=== PATIENT | female | born 1975 | race Caucasian/White ===

== ENCOUNTER → 2022-06-02 14:13 | Outpatient (CLI) | payer BC, SELFPAY ==
--- NOTE | ~2022-06-02 | MM_ITS ---
EXAMINATION: MM screening yvrose BI w gabe HISTORY: Screening mammogram TECHNIQUE: Craniocaudal and mediolateral oblique 3-D tomosynthesis images were obtained and synthetic 2-D images were generated. CAD analysis was submitted and interpreted. COMPARISON: 04/08/2021, 02/20/2020 bilateral screening mammogram examinations BREAST PARENCHYMAL COMPOSITION: There are scattered areas of fibroglandular density. FINDINGS: Stable benign-appearing posterior upper outer quadrant left intramammary lymph nodes and ri ght axillary tail lymph nodes, not significantly changed since 02/20/2020. There is no evidence of nick spicious mass, calcification, or architectural distortion to suggest malignancy in either breast. The re has been no suspicious interval change. IMPRESSION: 1. No mammographic evidence of malignancy. 2. Recommend routine screening mammography in one year. BI-RADS Category 2: Benign finding(s). Reviewed, dictated and finalized at location A.
== END ==
PROVIDERS: PCP Physician Assistant; Visit Provider Physician Assistant
DX: Z12.31 Encounter for screening mammogram for malignant neoplasm of breast (principal)
CPT/HCPCS: 77063; 77067

== ENCOUNTER 2022-07-14 00:11 | Day surgery (SDC) | payer BC, SELFPAY ==
[2022-07-03 10:39] VITALS: BMI 29.3
--- NOTE | 2022-07-11 16:27 | PM.HPGS ---
History of Present Illness History of Present Illness Consent: Risks, benefits, and alternatives have been discussed and questions answered. Patient agrees to proceed with procedure. Chief complaint: neoplasm screening Narrative: Kelly Fatima is a 46 year old female referred for colon cancer screening. Review of Systems Review of Systems: All systems reviewed & are unremarkable except as noted in HPI and below PMFSH Past Medical History Medical History Anxiety Asthma exercise induced Surgical History Surgical History H/O abdominoplasty 02/2006 History of section 02/2005, 09/2003 Social History Social History Smoking status: Never smoker Alcohol intake: current Drinks per week: 4 Alcohol use details: DRINKS Substance use: never Substance use type: does not use Living arrangements: with family Spiritual care concerns: No Meds Home Medications and Allergies Home Medications Medication Instructions Recorded Confirmed Type escitalopram oxalate 20 mg tablet 25 mg PO DAILY 03/18/19 07/14/22 History (Lexapro) omega-3 fatty acids 1,000 mg 1,000 mg PO DAILY 03/18/19 07/14/22 History capsule (Fish Oil Concentrate) doxycycline hyclate 20 mg tablet 20 mg PO DAILY 07/03/22 07/14/22 History levomefolate calcium 15 mg tablet 15 mg PO DAILY 07/03/22 07/14/22 History (L-Methylfolate) levothyroxine 50 mcg tablet 50 mcg PO DAILY 07/03/22 07/14/22 History lorazepam 1 mg tablet (Ativan) 1 mg PO DAILY PRN Anxiety 07/03/22 07/14/22 History spironolactone 100 mg tablet 100 mg PO DAILY 07/03/22 07/14/22 History tirzepatide 12.5 mg/0.5 mL 12.5 mg subcut WEEKLY 07/03/22 07/14/22 History subcutaneous pen injector (Mounjaro) Allergies Allergy/AdvReac Type Severity Reaction Status Date / Time Penicillins Allergy Intermediate Rash Verified 07/14/22 06:28 Exam Const: General: alert Orientation/consciousness: patient oriented x3 Resp: Auscultation: clear to auscultation bilaterally Cardio: Rhythm: regular rhythm GI: GI Palp: Yes Soft to palpation and No Tenderness to palpation present (GI) Neuro: General: patient oriented x3 Assessment and Plan Assessment and plan (1) Colon cancer screening: Code(s): Z12.11 - Encounter for screening for malignant neoplasm of colon Status: Acute Assessment and Plan: Colonoscopy with possible biopsy or polypectomy or cautery or injection of substances.
[2022-07-14 06:31] VITALS: BP 115/75; PULSE 93; RESP 16; TEMP 36.2; O2SAT 98
--- NOTE | 2022-07-14 06:41 | WPDANESEPPF ---
Anes - Initial Pre Proc Eval Procedure: Operation Date: 07/14/22 07:30 Proposed Procedures p Screening Colonoscopy - Amos Henson MD Date/Time: 07/14/22 06:41 Surgeon: Amos Henson MD Pre Op Diagnosis: neoplasm screening Patient Data Age: 46 Gender: F Height: 1.57 m Weight: 74.2 kg Last Vital Signs Temp 36.2 C L 07/14/22 06:31 Pulse 93 07/14/22 06:31 Resp 16 07/14/22 06:31 BP 115/75 07/14/22 06:31 Pulse Ox 98 07/14/22 06:31 O2 Del Method Room Air 07/14/22 06:31 Allergies Allergy/AdvReac Type Severity Reaction Status Date / Time Penicillins Allergy Intermediate Rash Verified 07/14/22 06:28 Home Medications Medication Instructions Recorded Confirmed Type escitalopram oxalate 20 mg tablet 25 mg PO DAILY 03/18/19 07/14/22 History (Lexapro) omega-3 fatty acids 1,000 mg 1,000 mg PO DAILY 03/18/19 07/14/22 History capsule (Fish Oil Concentrate) doxycycline hyclate 20 mg tablet 20 mg PO DAILY 07/03/22 07/14/22 History levomefolate calcium 15 mg tablet 15 mg PO DAILY 07/03/22 07/14/22 History (L-Methylfolate) levothyroxine 50 mcg tablet 50 mcg PO DAILY 07/03/22 07/14/22 History lorazepam 1 mg tablet (Ativan) 1 mg PO DAILY PRN Anxiety 07/03/22 07/14/22 History spironolactone 100 mg tablet 100 mg PO DAILY 07/03/22 07/14/22 History tirzepatide 12.5 mg/0.5 mL 12.5 mg subcut WEEKLY 07/03/22 07/14/22 History subcutaneous pen injector (Mounjaro) Patient hx anesthesia problems: none Family hx anesthesia problems: none Results Review: All pre-operative results and documents have been reviewed as part of the pre-operative evaluation. [facility] Past Medical History Medical History (Updated 07/14/22 @ 06:42 by Sam Akhtar DO) Anxiety Asthma exercise induced Surgical History Surgical History (Updated 03/18/19 @ 10:51 by Myles Craig MD) H/O abdominoplasty 02/2006 History of section 02/2005, 09/2003 Social History Social History (Updated 03/18/19 @ 08:46 by Leti Vincent RN) Smoking status: Never smoker Alcohol intake: current Drinks per week: 4 Alcohol use details: DRINKS Substance use: never Substance use type: does not use Living arrangements: with family Spiritual care concerns: No Anes - Eval Final PreProcedure Day of Procedure 07/14/22 06:41 Patient weight: overweight Heart: regular rate and rhythm Lungs: clear to auscultation Airway: Mallampati scale class II Neurological: alert and oriented Last oral intake: >/= 8 hours ASA classification: II Emergent: no Anesthetic plan: proceed Anesthesia type and monitoring: general GIVS and standard monitoring Results Review: All pre-operative results and documents have been reviewed as part of the pre-operative evaluation. Informed Consent: The patient's anesthetic plan and its attendant risks and benefits were discussed with the patient/family/POA. Questions were solicited and answers provided to the satisfaction of the patient/family/POA.
[2022-07-14] MEDS: LACTATED RINGERS 1,000 ML 150 ML IV CONT (06:42)
[2022-07-14 06:43] LABS: Glucose Point of Care 102 mg/dl (65-105)
[2022-07-14] MEDS: SIMETHICONE ORAL SUSPENSION 20 MG/0.3 ML 30 ML BOTTLE 0.6 ML IRRIGATION (07:35)
[2022-07-14 07:43] VITALS: BP 98/63; PULSE 92; RESP 20; O2SAT 96
[2022-07-14 07:53] VITALS: BP 103/69; PULSE 83; RESP 17; O2SAT 100
[2022-07-14 08:03] VITALS: BP 120/69; PULSE 81; RESP 19; O2SAT 100
== END 2022-07-14 08:06 | disposition home or self-care (01) ==
PROVIDERS: PCP Physician Assistant; Visit Provider Internal Medicine Gastroenterology
PROC: 0DJD8ZZ Inspection of Lower Intestinal Tract, Via Natural or Artificial Opening Endoscopic (ICD-10-PCS; CPT 45378; principal; 2022-07-14 07:30)
DX: Z12.11 Encounter for screening for malignant neoplasm of colon (principal); K57.30 Diverticulosis of large intestine without perforation or abscess without bleeding; K64.8 Other hemorrhoids; F41.9 Anxiety disorder, unspecified; Z79.899 Other long term (current) drug therapy
CPT/HCPCS: 45378; 82948; J2704; J7120

== ENCOUNTER → 2023-04-01 11:12 | Outpatient (CLI) | payer BC, SELFPAY ==
--- NOTE | ~2023-04-01 | US_ITS ---
EXAMINATION: US thyroid DATE: 04/01/2023 11:33 INDICATION: Subclinical iodine deficiency hypothyroidism. TECHNIQUE: Multiple ultrasound images of the thyroid were obtained. COMPARISON: None. FINDINGS: The right thyroid lobe measures 5.2 x 1.3 x 1.4 cm. The left thyroid lobe measures 4.5 x 1.9 x 1.8 c m. In the left thyroid lobe, there is a 2.3 cm solid, hypoechoic, wider than tall nodule with ill-de fined margin without echogenic foci (TI-RADS TR4). IMPRESSION: 1. Left thyroid nodule. Ultrasound-guided fine needle aspiration is recommended. Reviewed, dictated and finalized at location A. ICAL TRIALS MANAGER IMPRESSION: 1. Left thyroid nodule. Ultrasound-guided fine needle aspiration is recommended .
== END ==
PROVIDERS: PCP Physician Assistant; Visit Provider Physician Assistant
DX: E04.1 Nontoxic single thyroid nodule (principal)
CPT/HCPCS: 76536

== ENCOUNTER 2023-05-07 12:29 | Outpatient (CLI) | payer BC, SELFPAY ==
--- NOTE | ~2023-05-07 | US_ITS ---
EXAMINATION: US FNA w image guidance DATE: 05/07/2023 13:40 INDICATION: Nontoxic single thyroid nodule. TECHNIQUE: The procedure and its benefits and risks were discussed with the patient. Risks specifically discusse d included bleeding. The patient verbalized understanding of the risks and agreed to proceed. The nec k was prepped and draped in the usual sterile manner. 1% lidocaine was used for local anesthesia. 6 passes were made with a 25G needle into the lesion under ultrasound guidance. There were no immedia te complications. FINDINGS: Grayscale ultrasound images demonstrate needles advanced into a 2.3 cm nodule in left thyroid lobe fo r biopsy. IMPRESSION: 1. Ultrasound-guided fine needle aspiration of a left thyroid nodule. Reviewed, dictated and finalized at location A. LATION APPLICATOR
== END 2023-05-07 12:30 | disposition home or self-care (01) ==
PROVIDERS: PCP Physician Assistant; Visit Provider Physician Assistant
DX: E04.1 Nontoxic single thyroid nodule (principal)
CPT/HCPCS: 10005; 88172; 88173; 88305

== ENCOUNTER 2023-05-26 09:21 | Outpatient (CLI) | payer BC, SELFPAY ==
--- NOTE | 2023-05-26 11:00 | NEURO_ITS ---
Impression: # Complains of numbness of right hand and forearm discomfort. # Right Carpal Tunnel Syndrome. # No ulnar neuropathy. # Ulnar to median cross innervation noted. # Normal needle/EMG. Nerve Conduction Studies Anti Sensory Summary Table Stim Site NR Peak (ms) P-T Amp (?V) Site1 Site2 Delta-P (ms) Dist (cm) Ronny (m/s) Right Median Anti Sensory (2-3nd Digit) Wrist 3.0 52.7 Wrist 2-3nd Digit 3.0 14.0 47 Wrist 2.8 64.8 Wrist 2-3nd Digit 3.0 14.0 47 Axilla 2.0 107.1 Axilla Wrist 1.0 0.0 Right Radial Anti Sensory (Base 1st Digit) Wrist 1.7 39.1 Wrist Base 1st Digit 1.7 0.0 Right Ulnar Anti Sensory (5th Digit) Wrist 2.2 61.8 Wrist 5th Digit 2.2 14.0 64 Motor Summary Table Stim Site NR Onset (ms) O-P Amp (mV) Site1 Site2 Delta-0 (ms) Dist (cm) Ronny (m/s) Right Median Motor (Abd Poll Brev) Wrist 3.8 2.7 Elbow Wrist 4.2 24.0 57 Elbow 8.0 2.4 Right Ulnar Motor (Abd Dig Minimi) Wrist 2.3 8.9 A Elbow Wrist 4.4 27.0 61 A Elbow 6.7 8.2 F Wave Studies NR F-Lat (ms) L-R F-Lat (ms) Right Median (Mrkrs) (Abd Poll Brev) 27.60 Right Ulnar (Mrkrs) (Abd Dig Min) 25.92 EMG Side Muscle Nerve Root Ins Act Fibs Amp Dur Recrt Comment Right 1stDorInt Ulnar C8-T1 Nml Nml Nml Nml Nml Right Ext Indicis Radial (Post Int) C7-8 Nml Nml Nml Nml Nml Right Ext Digitorum Radial (Post Int) C7-8 Nml Nml Nml Nml Nml Right BrachioRad Radial C5-6 Nml Nml Nml Nml Nml Right PronatorTeres Median C6-7 Nml Nml Nml Nml Nml Right Abd Poll Brev Median C8-T1 Nml Nml Nml Nml Nml Right ABD Dig Min Ulnar C8-T1 Nml Nml Nml Nml Nml MTDD
== END 2023-05-26 09:22 | disposition home or self-care (01) ==
PROVIDERS: PCP Physician Assistant; Visit Provider Physician Assistant
DX: G56.01 Carpal tunnel syndrome, right upper limb (principal); G56.21 Lesion of ulnar nerve, right upper limb
CPT/HCPCS: 95886; 95909

== ENCOUNTER 2023-06-13 09:32 | Outpatient (CLI) | payer BC, SELFPAY ==
[2023-06-13 10:23] LABS: Anion Gap 9 mmol/L (8-16); Blood Urea Nitrogen 17 mg/dL (7-17); Calcium 10.1 mg/dL (8.4-10.2); Carbon Dioxide 27 mmol/L (22-30); Chloride 103 mmol/L (98-107); Estimated Glomerular Filt Rate > 60; Glucose 93 mg/dL (65-110); Potassium 4.5 mmol/L (3.4-5.0); Sodium 139 mmol/L (137-145)
== END 2023-06-13 09:33 | disposition home or self-care (01) ==
LOC: ANHLAB 09:33
PROVIDERS: PCP Physician Assistant; Visit Provider Anesthesiology
DX: Z79.899 Other long term (current) drug therapy (principal); Z01.818 Encounter for other preprocedural examination
CPT/HCPCS: 36415; 80048

== ENCOUNTER 2023-06-17 01:01 | Day surgery (SDC) | payer BC, SELFPAY ==
[2023-06-12 18:45] VITALS: BMI 32.0
--- NOTE | 2023-06-12 19:13 | PC.NURSE ---
Addendum entered by Chelo Noel RN 06/12/23 19:18: Patient was told not to drink liquids 8 hours prior to procedure Original Note: Report to the Outpatient Waiting Room, entrance under the green pavilion located off [facility], at time 09:15 on date 06/17/23. Planned Procedure Time: 11:15. Time changes happen often and if your time is changed the preop area will call you the afternoon before. - You and your visitor will be asked to self-screen and do not enter if you have any COVID symptoms. - A mask is optional within the hospital at this time. Patients may have clear liquids (water, carbonated beverages, clear teas, apple juice) until 3 hours prior to surgery with a maximum of 20 ounces. - No food from midnight until time of surgery Take the following medications with a SIP of water the morning of surgery: __Lexapro, Synthroid DO NOT STOP ANY OF YOUR OTHER PRESCRIPTION MEDICATIONS PRIOR TO SURGERY ?EXCEPT THE FOLLOWING Medications to discontinue per physician _Vitamins and supplements 3 days prior, Patient states she has not taken her Mounjaro since 06/03/23 and will not take it prior to procedure. Please no make-up, nail serbian, hairspray, perfume, deodorant, or body powder the day of surgery. No jewelry (including any body piercings) or valuables the day of surgery, leave them at home. Please take a shower or bath the night before, or the morning of, surgery with an antibacterial soap. Wear comfortable, loose fitting clothing. Children are encouraged to wear pajamas. - Jewelry must be removed prior to entering the operating room. Rings and piercings that are not removed may be cut off. - The hospital will not accept responsibility for valuables. - Please leave all valuables, including medications, at home the day of surgery. If you are going home after surgery, a licensed double bottom driver must drive you home. - NO public transportation without another adult if you receive anesthesia. - We recommend that an adult stay with you for 24 hours following discharge. - We also recommend that you do not drive, make important decision, drink alcoholic beverages, or take any drugs that were not prescribed by your health care provider for at least 24 hours after your discharge time. Follow any additional instructions given to you from your surgeon. If you or anyone in your household have experienced Covid symptoms in the past week, please notify your surgeon or the nurse liaison at the phone number below for possible testing. Telephone instructions given to __Kelly Perez and asked if any additional questions and then verbalized understanding. Patient advised to call surgeon office or pre surgery nurse liaison [phone] if any additional questions.
--- NOTE | 2023-06-17 07:04 | P.OP_ITS ---
Procedure Note - Detailed Date of Procedure 06/17/23 Pre-op Diagnosis right carpal and cubital tunnel syndrome, Post-op Diagnosis Same Procedure Performed right ectr and CuTR Surgeon Aparna Dee MD Diesel Locomotive Crane Operator Shanae Miller PA-C Anesthesia MAC Description of Procedure INFORMED CONSENT: The patient was seen and examined and marked in the pre-op area.? The patient signed the consent form. PROCEDURE IN DETAIL:The patient taken back to OR on the stretcher in supine position. Time out performed with anesthesia, surgeon and staff agreeing on patient's name site and surgery to be performed SCDs were placed on the lower extremities and inflated. A tourniquet was placed on {right} upper extremity and antibiotics given IV After anesthesia administered sedation I injected {6}cc 1%lido with epi and 0.5% marcaine plain at the operative sites The?{right upper extremity}?was prepped and draped in sterile fashion the??{right upper extremity} was? exsanguinated with Esmarch bandage and tourniquet inflated to 250mmHg I made a transverse incision in the {right} volar distal wrist crease through skin and dermis with 15 blade scalpel.? Littler scissors spread down to antebrachial fascia. A small incision was made in antebrachial fascia allowing access to Carpal tunnel. I proceeded with sequential dilation staying in line with the ring finger and hugging the hook of the hamate.? I then used the synovial elevator to free any adhesions from the underside of the transverse carpal ligament. Next I was able to insert the Microaire endoscopic carpal tunnel device with direct visualization of the transverse fibers on the monitor and proceeded with complete segmental retrograde release of the ligament in its entirety.? I irrigated with normal saline and closed with 4-0 monocryl for dermis and subcuticular closure. Next, I next proceeded with making a longitudinal incision between two heads for flexor carpi ulnaris at end of {right} cubital tunnel with 15 blade scalpel.? Littler scissors were used to spread down to FCU fascia.? An incision was made in FCU fascia and ulnar nerve identified exiting cubital tunnel.? I proceeded with complete retrograde release of the cubital tunnel including 7cm proximal for the intermuscular septum.? The nerve appeared healthy with visible vaso nervorum.? There was no subluxation on full elbow range of motion. ? I irrigated with normal saline and closure with 3-0 vicryl dermis and 4-0 monocryl subcuticular. A dressing of Dermabond, 4x4, ina, and a volar wrist and posterior elbow splints were applied for patient safety, security, and comfort and secured with an basilia bandage after the tourniquet was let down noting the hand was warm and well perfused. The patient was then awaken from anesthesia and transferred to the recovery room in stable condition.? Complications - none EBL- 0cc Disposition - home in stable conditions Shanae Miller PA-C was essential for positioinng, retraction, closure and dressing placement G Billing Surgery - Charge Forward: Surgery Billing ([id number], for shanae)
--- NOTE | 2023-06-17 07:04 | P.HPUP_ITS ---
History and Physical Update Update Date/Time: 06/17/23 07:04 Patient seen and examined in pre-operative holding area. No interval change in medical history or symptoms. Patient recalls previous discussion of benefits and alternatives to procedure. Continues to desire to proceed with right endoscopic possible open carpal tunnel and right cubital tunnel release. Reviewed procedure, post-op expectations and risks including but not limited to bleeding, infection, injury to tendon/nerve/vessel, decreased hand function, stiffness, RSD, no change or worsening of symptoms. I discussed the possible use of assistants and their participation in the case. Patient stated understanding a nd signed the consent form wishing to proceed.
[2023-06-17 09:54] VITALS: BP 108/65; PULSE 79; RESP 14; TEMP 36.5; O2SAT 98; BMI 32.3
--- NOTE | 2023-06-17 09:54 | WPDANESEPPF ---
Anes - Initial Pre Proc Eval Procedure: Operation Date: 06/17/23 11:15 Proposed Procedures p Right Endoscopic Carpal Tunnel Release, Possible Open, Right Cubital Tunnel Release - Aparna Dee MD Date/Time: 06/17/23 09:54 Surgeon: Aparna Dee MD Pre Op Diagnosis: right carpal tunnel syndrome, right ulnar neuropat Patient Data Age: 47 Gender: F Height: 1.57 m Weight: 79.38 kg Allergies Allergy/AdvReac Type Severity Reaction Status Date / Time Penicillins Allergy Intermediate Rash Verified 06/17/23 09:45 Home Medications Medication Instructions Recorded Confirmed Type omega-3 fatty acids 1,000 mg 1,000 mg PO DAILY 03/18/19 06/12/23 History capsule (Fish Oil Concentrate) doxycycline hyclate 20 mg tablet 20 mg PO DAILY 07/03/22 06/12/23 History levomefolate calcium 15 mg tablet 15 mg PO DAILY 07/03/22 06/12/23 History (L-Methylfolate) lorazepam 1 mg tablet (Ativan) 1 mg PO DAILY PRN Anxiety 07/03/22 06/12/23 History spironolactone 100 mg tablet 100 mg PO DAILY 07/03/22 06/12/23 History escitalopram oxalate 20 mg tablet 20 mg PO DAILY 06/11/23 06/12/23 History (Lexapro) tirzepatide 12.5 mg/0.5 mL 5 mg subcut WEEKLY 06/11/23 06/12/23 History subcutaneous pen injector (Mounjaro) cetirizine 10 mg tablet (Zyrtec) 10 mg PO DAILY PRN Allergy Symptoms 06/12/23 06/12/23 History levothyroxine 50 mcg tablet 50 mcg PO DAILY 06/12/23 06/12/23 History (Synthroid) tramadol 50 mg tablet 50 mg PO Q6H PRN pain #12 tabs 06/17/23 Rx Patient hx anesthesia problems: none Family hx anesthesia problems: none Results Review: All pre-operative results and documents have been reviewed as part of the pre-operative evaluation. [facility] Past Medical History Medical History (Updated 06/17/23 @ 09:54 by Jose Luis Dos Santos MD) Anxiety Asthma exercise induced Obesity Surgical History Surgical History H/O abdominoplasty 02/2006 History of section 02/2005, 09/2003 Social History Social History Smoking status: Never smoker Alcohol intake: current Drinks per week: 4 Alcohol use details: Social drinker Substance use: never Substance use type: does not use Do You Feel Safe in your Home?: Yes Lack of Transportation: No Lack of Food: Never True Current Housing: I Have Housing Concerned About Future Housing: No Difficulty Paying Gas/Electric Bills: No Difficulty Paying for Meds: No Currently Unemployed: No Education: Master's Degree or Higher Difficulty w/ Childcare or Family Care: No Living arrangements: with family Spiritual care concerns: No Anes - Eval Final PreProcedure Day of Procedure 06/17/23 09:54 Patient weight: obese Heart: regular rate and rhythm Lungs: clear to auscultation Airway: Mallampati scale class II Neurological: alert and oriented Last oral intake: >/= 8 hours ASA classification: III Emergent: no Anesthetic plan: proceed Anesthesia type and monitoring: general GIVS and standard monitoring Results Review: All pre-operative results and documents have been reviewed as part of the pre-operative evaluation. Informed Consent: The patient's anesthetic plan and its attendant risks and benefits were discussed with the patient/family/POA. Questions were solicited and answers provided to the satisfaction of the patient/family/POA.
[2023-06-17] MEDS: ceFAZolin 2 GM/D5W 50 ML 2 GM/50 ML BAG IVPB (10:20)
[2023-06-17] MEDS: BUPivacaine HCL 0.5% 10 ML AMP INFILTRATE (10:26)
[2023-06-17] MEDS: LIDO 1%/EPINEPHRINE 1:100,000 20 ML VIAL 10 ML INFILTRATE (10:26)
[2023-06-17] MEDS: LACTATED RINGERS 1,000 ML 30 ML IV CONT (10:28)
[2023-06-17 10:48] VITALS: BP 110/56; PULSE 93; RESP 18; O2SAT 97
[2023-06-17 11:15] VITALS: BP 101/49; PULSE 86; RESP 16
[2023-06-17 11:33] VITALS: BP 95/58; PULSE 68; RESP 16
== END 2023-06-17 11:36 | disposition home or self-care (01) ==
PROVIDERS: PCP Physician Assistant; Visit Provider Plastic Surgery
PROC: 01N54ZZ Release Median Nerve, Percutaneous Endoscopic Approach (ICD-10-PCS; CPT 29848; principal; 2023-06-17 11:15)
DX: G56.01 Carpal tunnel syndrome, right upper limb (principal); G56.21 Lesion of ulnar nerve, right upper limb; Z79.85 Long-term (current) use of injectable non-insulin antidiabetic drugs; F41.9 Anxiety disorder, unspecified; E66.9 Obesity, unspecified; Z68.32 Body mass index [BMI] 32.0-32.9, adult
CPT/HCPCS: 29848; 64718; J0690; J1100; J2250; J2405; J2704; J3010; J7120

== ENCOUNTER 2023-07-16 11:29 | Outpatient (CLI) | payer BC, SELFPAY ==
--- NOTE | ~2023-07-16 | MM_ITS ---
EXAMINATION: MM screening yvrose BI w gabe HISTORY: Screening mammogram TECHNIQUE: Craniocaudal and mediolateral oblique 3-D tomosynthesis images were obtained and synthetic 2-D images were generated. CAD analysis was submitted and interpreted. COMPARISON: 06/02/2022, 04/08/2021 and lateral screening mammogram examinations BREAST PARENCHYMAL COMPOSITION: There are scattered areas of fibroglandular density. FINDINGS: Stable right axillary tail and posterior upper-outer quadrant left lymph nodes. There is no evidence of suspicious mass, calcification, or architectural distortion to suggest malignancy in eit her breast. There has been no suspicious interval change. IMPRESSION: 1. No mammographic evidence of malignancy. 2. Recommend routine screening mammography in one year. BI-RADS Category 2: Benign finding(s). Reviewed, dictated and finalized at location A.
== END 2023-07-16 11:30 ==
LOC: MICIMG 11:29
PROVIDERS: PCP Physician Assistant; Visit Provider Obstetrics & Gynecology Gynecology
DX: Z12.31 Encounter for screening mammogram for malignant neoplasm of breast (principal)
CPT/HCPCS: 77063; 77067

== ENCOUNTER 2023-08-20 12:36 | Outpatient (CLI) | payer BC, SELFPAY ==
--- NOTE | ~2023-08-20 | US_ITS ---
EXAMINATION: US FNA w image guidance DATE: 08/20/2023 13:33 INDICATION: Left thyroid nodule. TECHNIQUE: The procedure and its benefits and risks were discussed with the patient. Risks specifically discusse d included bleeding. The patient verbalized understanding of the risks and agreed to proceed. The nec k was prepped and draped in the usual sterile manner. 1% lidocaine was used for local anesthesia. 6 passes were made with a 25G needle into the lesion under ultrasound guidance. There were no immedia te complications. FINDINGS: Grayscale ultrasound images demonstrate needles advanced into a 2.5 cm nodule in left thyroid lobe fo r biopsy. IMPRESSION: 1. Ultrasound-guided fine needle aspiration of a left thyroid nodule. Reviewed, dictated and finalized at location A.
== END 2023-08-20 12:37 | disposition home or self-care (01) ==
LOC: ANHIMG 12:37
PROVIDERS: PCP Physician Assistant; Visit Provider Otolaryngology
DX: E04.1 Nontoxic single thyroid nodule (principal)
CPT/HCPCS: 10005; 88172; 88173; 88305

== ENCOUNTER 2023-09-11 00:06 | Day surgery (SDC) | payer BC, SELFPAY ==
[2023-09-01 13:45] VITALS: BMI 31.1
--- NOTE | 2023-09-01 13:46 | PC.NURSE ---
Report to the Outpatient Waiting Room, entrance under the green pavilion located off [facility], at time _0630_ on date _09/11/23__. Planned Procedure Time: _0830__. Time changes happen often and if your time is changed the preop area will call you the afternoon before. - You and your visitor will be asked to self-screen and do not enter if you have any COVID symptoms. - A mask is optional within the hospital at this time. Patients may have clear liquids (water, carbonated beverages, clear teas, apple juice) until 3 hours prior to surgery with a maximum of 20 ounces. - No food from midnight until time of surgery - Infants may have breast milk until 4 hours before surgery, formula 6 hours prior to surgery. - Children will be allowed to drink immediately following surgery. If applicable, please bring a bottle or sippy cup to assist with drinking. Juice, water, soda, and popsicles are readily available. For infants on formula, please bring formula the day of surgery. Pacifiers are allowed. Take the following medications with a SIP of water the morning of surgery: _Lexapro, Synthroid, Ativan if needed__ DO NOT STOP ANY OF YOUR OTHER PRESCRIPTION MEDICATIONS PRIOR TO SURGERY ?EXCEPT THE FOLLOWING Medications to discontinue per physician _Vitamins and supplements 3 days prior___ Date to take last dose Please no make-up, nail french, hairspray, perfume, deodorant, or body powder the day of surgery. No jewelry (including any body piercings) or valuables the day of surgery, leave them at home. Please take a shower or bath the night before, or the morning of, surgery with an antibacterial soap. Wear comfortable, loose fitting clothing. Children are encouraged to wear pajamas. - Jewelry must be removed prior to entering the operating room. Rings and piercings that are not removed may be cut off. - The hospital will not accept responsibility for valuables. - Please leave all valuables, including medications, at home the day of surgery. If you are going home after surgery, a licensed short haul driver must drive you home. - NO public transportation without another adult if you receive anesthesia. - We recommend that an adult stay with you for 24 hours following discharge. - We also recommend that you do not drive, make important decision, drink alcoholic beverages, or take any drugs that were not prescribed by your health care provider for at least 24 hours after your discharge time. For Pediatric surgeries, we recommend two adults accompany the child home. Follow any additional instructions given to you from your surgeon. If you or anyone in your household have experienced Covid symptoms in the past week, please notify your surgeon or the nurse liaison at the phone number below for possible testing. Telephone instructions given to _patient__and asked if any additional questions and then verbalized understanding. Patient advised to call surgeon office or pre surgery nurse liaison [phone] if any additional questions.
--- NOTE | 2023-09-10 07:53 | PM.IMHP ---
H&P: HPI History of Present Illness Date/Time: 09/10/23 07:53 Chief Complaint: nasal congestion nasal obstruction septal deviation turbinate hypertrophy Narrative: planned procedure Review of Systems Review of Systems: All systems reviewed & are unremarkable except as noted in HPI and below [facility] Past Medical History Medical History (Updated 06/17/23 @ 09:54 by Jose Luis Dos Santos MD) Anxiety Asthma exercise induced Obesity Surgical History Surgical History H/O abdominoplasty 02/2006 History of section 02/2005, 09/2003 Social History Social History Smoking status: Never smoker Alcohol intake: current Drinks per week: 4 Alcohol use details: Social drinker Substance use: never Substance use type: does not use Do You Feel Safe in your Home?: Yes Lack of Transportation: No Lack of Food: Never True Current Housing: I Have Housing Concerned About Future Housing: No Difficulty Paying Gas/Electric Bills: No Difficulty Paying for Meds: No Currently Unemployed: No Education: Master's Degree or Higher Difficulty w/ Childcare or Family Care: No Living arrangements: with family Spiritual care concerns: No Meds Home Medications and Allergies Home Medications Medication Instructions Recorded Confirmed Type omega-3 fatty acids 1,000 mg 1,000 mg PO DAILY 03/18/19 09/01/23 History capsule (Fish Oil Concentrate) doxycycline hyclate 20 mg tablet 20 mg PO DAILY 07/03/22 09/01/23 History levomefolate calcium 15 mg tablet 15 mg PO DAILY 07/03/22 09/01/23 History (L-Methylfolate) lorazepam 1 mg tablet (Ativan) 1 mg PO DAILY PRN Anxiety 07/03/22 09/01/23 History spironolactone 100 mg tablet 100 mg PO DAILY 07/03/22 09/01/23 History escitalopram oxalate 20 mg tablet 20 mg PO DAILY 06/11/23 09/01/23 History (Lexapro) tirzepatide 12.5 mg/0.5 mL 5 mg subcut WEEKLY 06/11/23 09/01/23 History subcutaneous pen injector (Mounjaro) cetirizine 10 mg tablet (Zyrtec) 10 mg PO DAILY PRN Allergy Symptoms 06/12/23 09/01/23 History levothyroxine 50 mcg tablet 50 mcg PO DAILY 06/12/23 09/01/23 History (Synthroid) Allergies Allergy/AdvReac Type Severity Reaction Status Date / Time Penicillins Allergy Intermediate Rash Verified 09/01/23 13:33 Exam Narrative: septal deviation turbinate hypertrophy Assessment and Plan Assessment and plan (1) Hypertrophy of both inferior nasal turbinates: Code(s): J34.3 - Hypertrophy of nasal turbinates Status: Acute Assessment and Plan: plan OR septal endoscopic assisted septoplasty inferior turbinate reduction bilaterally with outfracture. Risks discussed bleed infection damage to surrounding structures postop infection postop bleeding need for further procedures. Failure to resolve symptoms. Septal perforation. Damage to brain CSF leak brain brain damage change in vision total blindness. Time-out for time off school and her son are cotton used heroin risk medication use. Damage any structures the clavicle by myself for damage to any structure induction remains anesthesia including vocal cord paralysis. Patient voiced understanding and agreed. (2) Nasal septal deviation: Code(s): J34.2 - Deviated nasal septum Status: Acute (3) Nasal obstruction: Code(s): J34.89 - Other specified disorders of nose and nasal sinuses Status: Acute
[2023-09-11] VITALS (8 sets, daily range): BP systolic 104–126; BP diastolic 70–90; PULSE 68–92; RESP 12–16; TEMP 36.1–36.6; O2SAT 96–100
[2023-09-11] MEDS: ACETAMINOPHEN 500 MG TABLET 1000 MG PO (06:38)
[2023-09-11] MEDS: LACTATED RINGERS 1,000 ML 30 ML IV CONT ×2 (06:40→09:46)
[2023-09-11 06:49] LABS: Glucose Point of Care 92 mg/dl (65-105)
--- NOTE | 2023-09-11 07:14 | WPDHPUPDATE1 ---
History and Physical Update Update Date/Time: 09/11/23 07:14 History and Physical has been reviewed, including an updated exam of the patient. There are NO changes in the patient's condition. Risks, benefits, and alternatives have been discussed and questions answered. Patient agrees to proceed with procedure.
--- NOTE | 2023-09-11 07:20 | WPDANESEPPF ---
Anes - Initial Pre Proc Eval Procedure: Operation Date: 09/11/23 08:00 Proposed Procedures p Bilateral Turbinate Reduction with Outfracture, - Dion Blank MD s Endoscopic Septoplasty - Dion Blank MD Date/Time: 09/11/23 07:20 Surgeon: Dion Blank MD Pre Op Diagnosis: septal deviation, chronic sinusitis Patient Data Age: 47 Gender: F Height: 1.57 m Weight: 79 kg Last Vital Signs Temp 97.8 F 09/11/23 06:19 Pulse 78 09/11/23 06:19 Resp 16 09/11/23 06:19 BP 111/80 09/11/23 06:19 Pulse Ox 97 09/11/23 06:19 O2 Del Method Room Air 09/11/23 06:19 Allergies Allergy/AdvReac Type Severity Reaction Status Date / Time Penicillins Allergy Intermediate Rash Verified 09/11/23 07:06 Home Medications Medication Instructions Recorded Confirmed Type omega-3 fatty acids 1,000 mg 1,000 mg PO DAILY 03/18/19 09/11/23 History capsule (Fish Oil Concentrate) doxycycline hyclate 20 mg tablet 20 mg PO DAILY 07/03/22 09/11/23 History levomefolate calcium 15 mg tablet 15 mg PO DAILY 07/03/22 09/11/23 History (L-Methylfolate) lorazepam 1 mg tablet (Ativan) 1 mg PO DAILY PRN Anxiety 07/03/22 09/11/23 History spironolactone 100 mg tablet 100 mg PO DAILY 07/03/22 09/11/23 History escitalopram oxalate 20 mg tablet 20 mg PO DAILY 06/11/23 09/11/23 History (Lexapro) tirzepatide 12.5 mg/0.5 mL 5 mg subcut WEEKLY 06/11/23 09/11/23 History subcutaneous pen injector (Mounjaro) cetirizine 10 mg tablet (Zyrtec) 10 mg PO DAILY PRN Allergy Symptoms 06/12/23 09/11/23 History levothyroxine 50 mcg tablet 50 mcg PO DAILY 06/12/23 09/11/23 History (Synthroid) Laboratory Tests 09/11/23 06:43 POC Capillary Glucose 92 mg/dl (65-105) Patient hx anesthesia problems: none Family hx anesthesia problems: none Results Review: All pre-operative results and documents have been reviewed as part of the pre-operative evaluation. [facility] Past Medical History Medical History Anxiety Asthma exercise induced Obesity Surgical History Surgical History H/O abdominoplasty 02/2006 History of section 02/2005, 09/2003 Social History Social History Smoking status: Never smoker Alcohol intake: current Drinks per week: 4 Alcohol use details: Social drinker Substance use: never Substance use type: does not use Do You Feel Safe in your Home?: Yes Lack of Transportation: No Lack of Food: Never True Current Housing: I Have Housing Concerned About Future Housing: No Difficulty Paying Gas/Electric Bills: No Difficulty Paying for Meds: No Currently Unemployed: No Education: Master's Degree or Higher Difficulty w/ Childcare or Family Care: No Living arrangements: with family Spiritual care concerns: No Anes - Eval Final PreProcedure Day of Procedure 09/11/23 07:20 Patient weight: obese Heart: regular rate and rhythm Lungs: clear to auscultation Airway: Mallampati scale class II Neurological: alert and oriented Last oral intake: >/= 8 hours ASA classification: II Emergent: no Anesthetic plan: proceed Anesthesia type and monitoring: general ETT and standard monitoring Results Review: All pre-operative results and documents have been reviewed as part of the pre-operative evaluation. Informed Consent: The patient's anesthetic plan and its attendant risks and benefits were discussed with the patient/family/POA. Questions were solicited and answers provided to the satisfaction of the patient/family/POA.
[2023-09-11] MEDS: ceFAZolin 2 GM/D5W 50 ML 2 GM/50 ML BAG IVPB (08:21)
[2023-09-11] MEDS: OXYMETAZOLINE HCL 0.05% NAS 15 ML BTL (*BKC) 1 SPRAY NASAL (08:34)
[2023-09-11] MEDS: LIDO 1%/EPINEPHRINE 1:100,000 20 ML VIAL 50 ML INFILTRATE (08:37)
--- NOTE | 2023-09-11 10:07 | W.PM.PROC2 ---
Procedure Note - Detailed Date of Procedure 09/11/23 Pre-op Diagnosis septal deviation, turbinate hypertrophy Post-op Diagnosis Same Procedure Performed bilateral inferior turbinate reduction with outfracture, endoscopic assisted septoplasty Surgeon Dion Blank MD Anesthesia General Indications see above Findings severely deviated leftward septum large turbinates right greater than left minimal bleeding no complications Description of Procedure patient identified consent verified preop. Patient brought to the operating. Time-out performed. General anesthesia induced endotracheal tube secured. Patient prepped draped position procedure confirmed 2nd time-out performed. 0 degree endoscope utilized. Severe left septal deviation large turbinates total 15 cc 1% lidocaine 1 100,000 parts epinephrine checked in the bilateral nasal septum and inferior turbinates bilaterally. Cuco incision made left-sided nasal flap elevated no tear osteotome utilized to cross to the septum right nasal septal flap elevated small tear on the right side again no concomitant tear on the left side. Deviated septum removed Pietro Duran forceps Fouzia forceps and osteotome. Septum were rinsed out with sterile normal saline. [place] incision closed with 5 interrupted 5 0 fast gut sutures. Turbinates a stab anteriorly with a 15 blade reduced bilaterally in the submucosal plane with [employer] microdebrider 2.5 mm blade. Then outfractured [place] elevator. [place] tips cauterized. Bilaterally. Bleeding only about 10 cc. Patient tolerated the procedure well no complications [place] splints were placed and sutured anteriorly using a 3-0 mattress nylon suture. I performed all dictated portions. Patient tolerated the procedure very well care the patient given back to Anesthesiology patient taken to PACU. Estimated Blood Loss 10 Drains No Packing No Pathology None sent Complications No immediate complications Condition Stable Disposition PACU [facility] Billing Surgery - Charge Forward: Surgery Billing
[2023-09-11] MEDS: fentaNYL CITRATE INJ (*CRX) 100 MCG/2 ML VIAL 25 MCG IV PUSH (10:32)
[2023-09-11] MEDS: oxyCODONE HCL (*CRX) 5 MG TAB IR PO (11:15)
== END 2023-09-11 11:46 | disposition home or self-care (01) ==
PROVIDERS: PCP Physician Assistant; Visit Provider Otolaryngology
PROC: (CPT 30520; principal; 2023-09-11 08:00)
PROC: (CPT 30520; 2023-09-11 08:00)
DX: J34.2 Deviated nasal septum (principal); J34.3 Hypertrophy of nasal turbinates; J32.9 Chronic sinusitis, unspecified; J34.89 Other specified disorders of nose and nasal sinuses; F41.9 Anxiety disorder, unspecified; J45.909 Unspecified asthma, uncomplicated; E66.9 Obesity, unspecified; Z68.31 Body mass index [BMI] 31.0-31.9, adult; Z98.890 Other specified postprocedural states; Z79.85 Long-term (current) use of injectable non-insulin antidiabetic drugs
CPT/HCPCS: 30520; 30140; 82948; A9270; J0690; J1100; J1200; J1596; J2250; J2371; J2405; J2704; J3010; J7050; J7120

== ENCOUNTER 2024-09-07 14:02 | Outpatient (CLI) | payer BC, SELFPAY ==
--- NOTE | ~2024-09-07 | MM_ITS ---
EXAMINATION: MM screening yvrose BI w gabe HISTORY: Screening TECHNIQUE: Craniocaudal and mediolateral oblique 3-D tomosynthesis images were obtained and synthetic 2-D images were generated. CAD analysis was submitted and interpreted. COMPARISON: Comparison to multiple prior studies sequentially, with oldest reviewed study dated 01/22. BREAST PARENCHYMAL COMPOSITION: Not dense: There are scattered areas of fibroglandular density. FINDINGS: There is no evidence of suspicious mass, calcification, or architectural distortion to sugg est malignancy in either breast. There has been no suspicious interval change. IMPRESSION: 1. No mammographic evidence of malignancy. 2. Recommend routine screening mammography in one year. BI-RADS Category 1: Negative Reviewed, dictated and finalized at location A.
== END 2024-09-07 14:03 | disposition home or self-care (01) ==
LOC: MICIMG 14:02
PROVIDERS: PCP Physician Assistant; Visit Provider Obstetrics & Gynecology Gynecology
DX: Z12.31 Encounter for screening mammogram for malignant neoplasm of breast (principal)
CPT/HCPCS: 77063; 77067